=== PATIENT | male | born 1965 | race Caucasian/White ===

== ENCOUNTER 2017-09-18 13:21 | Inpatient (IN) | payer OTHER ==
[~2017-09-18] VITALS: Ht 180.3 cm; Wt 105.6 kg
[~2017-09-18 13:21] MED LIST: NOHOMEMEDS
[2017-09-18 13:35] LABS: BASOPHIL (%) 0.5 % (0-1); BASOPHIL COUNT 0.1 K/uL (0-0.1); EOSINOPHIL (%) 0.1 % (0-5); HEMATOCRIT 51.7 % (38.0-50.0); HEMOGLOBIN 16.2 G/DL (12.5-16.6); IMMATURE GRANULOCYTE (%) 2.4 % (0.0-0.7); LYMPHOCYTE (%) 12.6 % (15-42); LYMPHOCYTE COUNT 1.7 K/uL (1.0-2.8); MCH 32.6 PG (29.0-34.0); MCHC 31.3 G/DL (30.0-36.0); MONOCYTE (%) 6.4 % (3-12); MONOCYTE COUNT 0.9 K/uL (0-0.8); NEUTROPHIL COUNT 10.8 K/uL (1.8-6.4); PLATELET COUNT 297 K/uL (156-360); RBC DIS.WIDTH-CV 13.2 % (11.8-14.6); RBC DIS.WIDTH-SD 51.3 % (39-53); RED BLOOD COUNT 4.97 M/uL (4.00-5.50); WHITE BLOOD COUNT 13.8 K/uL (4.1-10.2)
[2017-09-18 13:41] LABS: INTER. NORMALIZED RATIO 1.1
[2017-09-18 13:43] LABS: PTT 27.9 SEC (25-37)
[2017-09-18 13:50] LABS: CARBOXY HGB 0 % (0-5); METHEMOGLOBIN 1.5 % (0-1.5); PCO2 < 18 mm Hg (35-45); PO2 > 583 mm Hg (80-100)
[2017-09-18 13:58] LABS: COMMENTS - BLOOD GASES A+C+; DEVICE 840 PB; FI02 100 %; MODE SPONT; PEEP 5 CM/H20; PRES. SUPPORT 10 CM/H2O; SITE RR; TOTAL RESP RATE 20 resp/min; pH < 6.92 (7.35-7.45)
[2017-09-18 13:59] LABS: TROP-I INTERPRETATION NEGATIVE; TROPONIN-I < 0.01 ng/mL (0.0-0.30)
[2017-09-18 14:13] LABS: ALBUMIN 5.4 g/dL (3.2-4.8); CHLORIDE 116 mEq/L (99-109); POTASSIUM 5.5 mEq/L (3.7-5.4); SODIUM 147 mEq/L (136-147)
[2017-09-18 14:14] LABS: AMYLASE 51 IU/L (1-118)
[2017-09-18 14:16] LABS: APPEARANCE SL.HAZY ((CLEAR)); BILIRUBIN NEGATIVE; BLOOD MODERATE; COLOR STRAW ((YELLOW)); GLUCOSE 238 mg/dL (70-99); GLUCOSE (STRIP) 50; KETONES NEGATIVE; LEUKOCYTES NEGATIVE; NITRITE NEGATIVE; PROTEIN (STRIP) 100; SPECIFIC GRAVITY 1.012 (1.000-1.030); TOTAL PROTEIN 9.6 g/dL (6.4-8.3); UROBILINOGEN 0.2 MG/DL (0.2-1.0)
[2017-09-18 14:18] LABS: TOTAL BILIRUBIN 0.1 mg/dL (0.0-1.0)
[2017-09-18 14:19] LABS: ALKALINE PHOSPHATASE 64 IU/L (3-129); SERUM ETHYL ALCOHOL < 10 mg/dL
[2017-09-18 14:20] LABS: CREATININE 1.5 mg/dL (0.6-1.3); GFR ESTIMATE (CALCULATED) 52 mL/min/ (58.99-99999)
[2017-09-18 14:21] LABS: AST (GOT) 20 IU/L (2-34); UREA NITROGEN (BUN) 10 mg/dL (9-23)
[2017-09-18 14:22] LABS: ALT (GPT) 28 IU/L (3-49)
[2017-09-18 14:23] LABS: CREATINE KINASE 122 IU/L (1-294); LIPASE 12 U/L (1.0-51.0)
[2017-09-18 14:27] LABS: AMPHETAMINE NEGATIVE (500 ng/mL); BARBITURATES NEGATIVE (200 ng/mL); BENZODIAZEPINES NEGATIVE (150 ng/mL); BUPRENORPHINE NEGATIVE (10 ng/mL); COCAINE NEGATIVE (150 ng/mL); METHADONE NEGATIVE (200 ng/mL); METHAMPHETAMINE NEGATIVE (500 ng/mL); OPIATES (MORPHINE) NEGATIVE (100 ng/mL); OXYCODONE NEGATIVE (100 ng/mL); PHENCYCLIDINE NEGATIVE (25 ng/mL); PROPOXYPHENE NEGATIVE (300 ng/mL); THC CANNABINOIDS NEGATIVE (50 ng/mL); TRICYCLIC ANTIDEPRESSANTS NEGATIVE (300 ng/mL)
[2017-09-18 14:36] LABS: BACTERIA RARE /HPF; CALCIUM PHOSPHATE CRYSTALS 2+; EPITHELIAL CELLS RARE /HPF; HYALINE CASTS 0-5 /LPF; MUCUS NONE SEEN /LPF; UCUL ADDED? NO; WHITE BLOOD CELLS 0-5 /HPF (0-5)
[2017-09-18 17:03] LABS: CARBOXY HGB 0.1 % (0-5); COMMENTS - BLOOD GASES A+C+; DEVICE 840 PB; FI02 40 %; METHEMOGLOBIN 1.9 % (0-1.5); MODE SPONT; PCO2 < 18 mm Hg (35-45); PEEP 5 CM/H20; PO2 309 mm Hg (80-100); PRES. SUPPORT 10 CM/H2O; SITE RR; TOTAL RESP RATE 13 resp/min; pH < 6.92 (7.35-7.45)
[2017-09-18 17:04] LABS: TIDAL VOLUME 2400 ML
[2017-09-18 18:11] LABS: ALBUMIN 4.7 g/dL (3.2-4.8); CHLORIDE 118 mEq/L (99-109)
[2017-09-18 18:12] LABS: POTASSIUM 7.2 mEq/L (3.7-5.4); SODIUM 151 mEq/L (136-147)
[2017-09-18 18:14] LABS: GLUCOSE 183 mg/dL (70-99); TOTAL PROTEIN 8.3 g/dL (6.4-8.3)
[2017-09-18 18:17] LABS: ALKALINE PHOSPHATASE 55 IU/L (3-129); CREATININE 1.7 mg/dL (0.6-1.3); GFR ESTIMATE (CALCULATED) 45 mL/min/ (58.99-99999)
[2017-09-18 18:18] LABS: SALICYLATE < 5.0 MG/DL (15-30)
[2017-09-18 18:19] LABS: ACETAMINOPHEN (TYLENOL) < 10 mcg/mL (10-30); AST (GOT) 21 IU/L (2-34); UREA NITROGEN (BUN) 14 mg/dL (9-23)
[2017-09-18 18:20] LABS: ALT (GPT) 26 IU/L (3-49)
[2017-09-18 18:30] LABS: TOTAL BILIRUBIN 0.2 mg/dL (0.0-1.0)
[2017-09-18 18:43] VITALS: BP 168/100
[2017-09-18 19:00] VITALS: BP 180/98
[2017-09-18 20:00] VITALS: BP 173/103
[2017-09-18 20:27] LABS: CARBOXY HGB 0.8 % (0-5); METHEMOGLOBIN 2.4 % (0-1.5); PCO2 < 19 mm Hg (35-45)
[2017-09-18 20:28] LABS: COMMENTS - BLOOD GASES A+C+; DEVICE VENT; FI02 40 %; MODE SPONT; PEEP 5 CM/H20; PO2 238 mm Hg (80-100); PRES. SUPPORT 10 CM/H2O; SITE RR; TIDAL VOLUME 1860 ML; TOTAL RESP RATE 17 resp/min; pH 7.12 (7.35-7.45)
[2017-09-18 21:00] VITALS: BP 92/75
[2017-09-18 21:30] VITALS: BP 80/55
[2017-09-18 22:23] LABS: ALBUMIN 4.3 g/dL (3.2-4.8); SODIUM 145 mEq/L (136-147)
[2017-09-18 22:26] LABS: GLUCOSE 167 mg/dL (70-99); TOTAL PROTEIN 7.6 g/dL (6.4-8.3)
[2017-09-18 22:29] LABS: ALKALINE PHOSPHATASE 49 IU/L (3-129)
[2017-09-18 22:30] LABS: UREA NITROGEN (BUN) 10 mg/dL (9-23)
[2017-09-18 22:31] LABS: AST (GOT) 28 IU/L (2-34)
[2017-09-18 22:32] LABS: ALT (GPT) 24 IU/L (3-49)
[2017-09-18 22:36] LABS: CHLORIDE 102 mEq/L (99-109); CREATININE 1.2 mg/dL (0.6-1.3); GFR ESTIMATE (CALCULATED) > 59 mL/min/ (58.99-99999); TOTAL BILIRUBIN 0.4 mg/dL (0.0-1.0)
[2017-09-18 22:53] LABS: CARBOXY HGB 1.3 % (0-5); METHEMOGLOBIN 1.9 % (0-1.5); PCO2 < 19 mm Hg (35-45)
[2017-09-18 22:54] LABS: COMMENTS - BLOOD GASES C+; DEVICE VENT; FI02 40 %; MODE SPONT; PO2 199 mm Hg (80-100); SITE R RAD ALINE; TOTAL RESP RATE 27 resp/min; pH 7.45 (7.35-7.45)
[2017-09-18 22:55] LABS: PEEP 5 CM/H20; PRES. SUPPORT 10 CM/H2O; TIDAL VOLUME 1500 ML
[2017-09-19] VITALS: BP 104/73
[2017-09-19 01:27] LABS: Methyl Alcohol (Methanol) None Detected (())
[2017-09-19 02:22] LABS: BASE EXCESS 7.1 mEq/L (-3 to +3); BICARBONATE 31.3 mEq/L (22-26); CARBOXY HGB 1.4 % (0-5); PCO2 42 mm Hg (35-45); pH 7.48 (7.35-7.45)
[2017-09-19 02:23] LABS: COMMENTS - BLOOD GASES C+; DEVICE VENT; FI02 40 %; MODE SPONT; PEEP 5 CM/H20; PO2 160 mm Hg (80-100); PRES. SUPPORT 10 CM/H2O; SITE R RAD ALINE; TOTAL RESP RATE 10 resp/min
[2017-09-19 04:00] VITALS: BP 103/67
[2017-09-19 04:17] LABS: BASE EXCESS 6.2 mEq/L (-3 to +3); BICARBONATE 31.2 mEq/L (22-26); CARBOXY HGB 1.1 % (0-5); METHEMOGLOBIN 2.2 % (0-1.5); PCO2 46 mm Hg (35-45); PO2 148 mm Hg (80-100); pH 7.44 (7.35-7.45)
[2017-09-19 04:18] LABS: COMMENTS - BLOOD GASES C+; DEVICE VENT; FI02 40 %; MECHANICAL RATE 12 resp/min; MODE AC; SITE R RAD ALINE; TOTAL RESP RATE 12 resp/min
[2017-09-19 04:19] LABS: PEEP 5 CM/H20; TIDAL VOLUME 500 ML
[2017-09-19 05:25] LABS: ALBUMIN 3.4 G/DL (3.2-4.8); ALKALINE PHOSPHATASE 33 IU/L (3-129); ALT (GPT) 17 IU/L (3-49); AST (GOT) 28 IU/L (2-34); CHLORIDE 97 MEQ/L (99-109); CREATININE 1.4 MG/DL (0.6-1.3); GFR ESTIMATE (CALCULATED) 56 mL/min/ (58.99-99999); GLUCOSE 148 mg/dL (70-99); SODIUM 145 MEQ/L (136-147); TOTAL BILIRUBIN 0.5 MG/DL (0.0-1.0); TOTAL PROTEIN 5.7 G/DL (6.4-8.3); UREA NITROGEN (BUN) 6 mg/dL (9-23)
[2017-09-19 05:27] LABS: POTASSIUM 3.1 MEQ/L (3.7-5.4)
[2017-09-19 07:20] LABS: BASE EXCESS 10.5 mEq/L (-3 to +3); BICARBONATE 36.5 mEq/L (22-26); CARBOXY HGB 1.5 % (0-5); COMMENTS - BLOOD GASES C+; DEVICE VENT; FI02 40 %; METHEMOGLOBIN 2.1 % (0-1.5); MODE AC; PCO2 55 mm Hg (35-45); PO2 154 mm Hg (80-100); SITE ALINE; pH 7.43 (7.35-7.45)
[2017-09-19 07:21] LABS: MECHANICAL RATE 12 resp/min; PEEP 5 CM/H20; TIDAL VOLUME 500 ML; TOTAL RESP RATE 12 resp/min
[2017-09-19 08:00] VITALS: BP 95/61
[2017-09-19 10:32] LABS: BASE EXCESS 10.8 mEq/L (-3 to +3); BICARBONATE 36.7 mEq/L (22-26); CARBOXY HGB 1.4 % (0-5); METHEMOGLOBIN 1.8 % (0-1.5); PCO2 54 mm Hg (35-45); pH 7.44 (7.35-7.45)
[2017-09-19 10:33] LABS: COMMENTS - BLOOD GASES C+; DEVICE VENT; FI02 30 %; MECHANICAL RATE 12 resp/min; MODE AC; PEEP 5 CM/H20; PO2 107 mm Hg (80-100); SITE ALINE; TIDAL VOLUME 500 ML; TOTAL RESP RATE 20 resp/min
[2017-09-19 10:58] LABS: HEPATITIS B SURFACE ANTIBODY Nonreactive; HEPATITIS B SURFACE ANTIGEN Nonreactive
[2017-09-19 12:00] VITALS: BP 149/92
[2017-09-19 20:26] LABS: BASE EXCESS 6.4 mEq/L (-3 to +3); BICARBONATE 28.7 mEq/L (22-26); CARBOXY HGB 1.3 % (0-5); COMMENTS - BLOOD GASES C+; DEVICE VENT; FI02 30 %; MECHANICAL RATE 20 resp/min; METHEMOGLOBIN 1.7 % (0-1.5); MODE A/C; PCO2 32 mm Hg (35-45); PEEP 5 CM/H20; PO2 73 mm Hg (80-100); SITE A LINE; TIDAL VOLUME 500 ML; TOTAL RESP RATE 20 resp/min; pH 7.56 (7.35-7.45)
[2017-09-19 20:37] LABS: ALBUMIN 3.1 G/DL (3.2-4.8); ALKALINE PHOSPHATASE 30 IU/L (3-129); ALT (GPT) 19 IU/L (3-49); CHLORIDE 104 MEQ/L (99-109); CREATININE 1.5 MG/DL (0.6-1.3); GFR ESTIMATE (CALCULATED) 52 mL/min/ (58.99-99999); POTASSIUM 3.5 MEQ/L (3.7-5.4); SODIUM 141 MEQ/L (136-147); TOTAL BILIRUBIN 0.6 MG/DL (0.0-1.0); TOTAL PROTEIN 5.2 G/DL (6.4-8.3); UREA NITROGEN (BUN) 4 mg/dL (9-23)
[2017-09-19 20:39] LABS: AST (GOT) 44 IU/L (2-34); GLUCOSE 89 mg/dL (70-99)
[2017-09-19 22:43] LABS: BASE EXCESS 7.4 mEq/L (-3 to +3); BICARBONATE 31.2 mEq/L (22-26); CARBOXY HGB 1.6 % (0-5); METHEMOGLOBIN 1.6 % (0-1.5); PO2 86 mm Hg (80-100)
[2017-09-19 22:44] LABS: COMMENTS - BLOOD GASES C+; DEVICE VENT; FI02 30 %; MECHANICAL RATE 15 resp/min; MODE A/C; PCO2 40 mm Hg (35-45); PEEP 5 CM/H20; SITE A LINE; TIDAL VOLUME 500 ML; TOTAL RESP RATE 15 resp/min
[2017-09-20 05:08] LABS: BASOPHIL (%) 0.4 % (0-1); EOSINOPHIL COUNT 0.1 K/uL (0-0.3); HEMATOCRIT 29.3 % (38.0-50.0); IMMATURE GRANULOCYTE (%) 0.5 % (0.0-0.7); LYMPHOCYTE (%) 9.1 % (15-42); LYMPHOCYTE COUNT 0.7 K/uL (1.0-2.8); MCH 32.6 PG (29.0-34.0); MCHC 34.1 G/DL (30.0-36.0); MONOCYTE (%) 12.6 % (3-12); NEUTROPHIL (%) 76.4 % (45-76); NEUTROPHIL COUNT 6.1 K/uL (1.8-6.4); RBC DIS.WIDTH-SD 45.6 % (39-53)
[2017-09-20 05:11] LABS: BASE EXCESS 3.2 mEq/L (-3 to +3); BICARBONATE 27.9 mEq/L (22-26); CARBOXY HGB 1.5 % (0-5); COMMENTS - BLOOD GASES C+; DEVICE VENT; FI02 30 %; MECHANICAL RATE 13 resp/min; METHEMOGLOBIN 1.4 % (0-1.5); MODE A/C; PCO2 42 mm Hg (35-45); PEEP 5 CM/H20; PO2 97 mm Hg (80-100); SITE ALINE; TIDAL VOLUME 500 ML; pH 7.43 (7.35-7.45)
[2017-09-20 05:15] LABS: RED BLOOD COUNT 3.07 M/uL (4.00-5.50)
[2017-09-20 05:16] LABS: MCV 95.4 FL (86-99)
[2017-09-20 06:10] LABS: ALBUMIN 2.9 G/DL (3.2-4.8); ALKALINE PHOSPHATASE 27 IU/L (3-129); ALT (GPT) 17 IU/L (3-49); AST (GOT) 40 IU/L (2-34); CHLORIDE 104 MEQ/L (99-109); GLUCOSE 96 mg/dL (70-99); MAGNESIUM 1.7 mg/dl (1.3-2.7); PHOSPHORUS 2.1 mg/dL (2.5-4.9); POTASSIUM 3.2 MEQ/L (3.7-5.4); SODIUM 140 MEQ/L (136-147); TOTAL BILIRUBIN 0.6 MG/DL (0.0-1.0); VANCOMYCIN, TROUGH 17.8 MCG/ML (10-20)
[2017-09-20 08:19] LABS: CREATININE 2.9 MG/DL (0.6-1.3); GFR ESTIMATE (CALCULATED) 24 mL/min/ (58.99-99999); UREA NITROGEN (BUN) 8 mg/dL (9-23)
[2017-09-20 11:28] LABS: HEPATITIS B SURFACE ANTIGEN Nonreactive
[2017-09-20 11:29] LABS: HEPATITIS C ANTIBODY Nonreactive
[2017-09-20 11:31] LABS: ANTI-HEPATITIS A VIRUS (IGM) Nonreactive; ANTI-HEPATITIS B CORE (IGM) Nonreactive
[2017-09-20 11:33] LABS: HIV-1/2 AB/AG COMBO Nonreactive
[2017-09-20 13:52] LABS: PLATELET COUNT 111 K/uL (156-360)
[2017-09-20 22:00] VITALS: BP 126/83
[2017-09-21] VITALS (12 sets, daily range): BP systolic 93–181; BP diastolic 66–103
[2017-09-21 06:13] LABS: BASOPHIL (%) 0.6 % (0-1); EOSINOPHIL COUNT 0.2 K/uL (0-0.3); HEMATOCRIT 29.8 % (38.0-50.0); HEMOGLOBIN 10.1 G/DL (12.5-16.6); IMMATURE GRANULOCYTE (%) 0.3 % (0.0-0.7); LYMPHOCYTE (%) 12.3 % (15-42); LYMPHOCYTE COUNT 0.8 K/uL (1.0-2.8); MCH 32.7 PG (29.0-34.0); MCHC 33.9 G/DL (30.0-36.0); MCV 96.4 FL (86-99); MONOCYTE (%) 12.9 % (3-12); MONOCYTE COUNT 0.9 K/uL (0-0.8); NEUTROPHIL (%) 70.9 % (45-76); NEUTROPHIL COUNT 4.8 K/uL (1.8-6.4); PLATELET COUNT 131 K/uL (156-360); RBC DIS.WIDTH-CV 13.2 % (11.8-14.6); RBC DIS.WIDTH-SD 46.4 % (39-53); RED BLOOD COUNT 3.09 M/uL (4.00-5.50); WHITE BLOOD COUNT 6.8 K/uL (4.1-10.2)
[2017-09-21 07:02] LABS: ALBUMIN 3.4 G/DL (3.2-4.8); ALKALINE PHOSPHATASE 29 IU/L (3-129); ALT (GPT) 18 IU/L (3-49); AST (GOT) 41 IU/L (2-34); CHLORIDE 100 MEQ/L (99-109); CREATININE 3.9 MG/DL (0.6-1.3); GFR ESTIMATE (CALCULATED) 17 mL/min/ (58.99-99999); GLUCOSE 94 mg/dL (70-99); SODIUM 138 MEQ/L (136-147); TOTAL BILIRUBIN 0.7 MG/DL (0.0-1.0); UREA NITROGEN (BUN) 12 mg/dL (9-23); URIC ACID 1.6 mg/dL (3.1-9.2); VANCOMYCIN, TROUGH 16.4 MCG/ML (10-20)
[2017-09-21 07:03] LABS: PHOSPHORUS 3.3 mg/dL (2.5-4.9); TOTAL PROTEIN 5.8 G/DL (6.4-8.3)
[2017-09-21 17:17] LABS: THYROTROPIN (TSH) 2.6 MIU/L (0.4-5.5)
[2017-09-21 18:15] LABS: TRIGLYCERIDES 208 MG/DL (Normal: <150)
[2017-09-21 18:35] LABS: HIGH-SENS C-REACTIVE PROTEIN > 8.00 MG/DL (0.02-0.20)
[2017-09-22] VITALS (25 sets, daily range): BP systolic 103–173; BP diastolic 66–118
[2017-09-22 04:41] LABS: BASOPHIL (%) 0.5 % (0-1); EOSINOPHIL (%) 4.6 % (0-5); EOSINOPHIL COUNT 0.3 K/uL (0-0.3); HEMATOCRIT 29.1 % (38.0-50.0); IMMATURE GRANULOCYTE (%) 0.3 % (0.0-0.7); LYMPHOCYTE COUNT 0.7 K/uL (1.0-2.8); MCH 32.8 PG (29.0-34.0); MCHC 34.4 G/DL (30.0-36.0); MCV 95.4 FL (86-99); MONOCYTE (%) 14.9 % (3-12); NEUTROPHIL (%) 69.7 % (45-76); NEUTROPHIL COUNT 4.6 K/uL (1.8-6.4); PLATELET COUNT 116 K/uL (156-360); RBC DIS.WIDTH-CV 12.8 % (11.8-14.6); RED BLOOD COUNT 3.05 M/uL (4.00-5.50); WHITE BLOOD COUNT 6.5 K/uL (4.1-10.2)
[2017-09-22 05:04] LABS: CHLORIDE 103 mEq/L (99-109); POTASSIUM 3.9 mEq/L (3.7-5.4); SODIUM 139 mEq/L (136-147)
[2017-09-22 05:05] LABS: MAGNESIUM 2.1 mg/dL (1.3-2.7)
[2017-09-22 05:06] LABS: GLUCOSE 89 mg/dL (70-99)
[2017-09-22 05:10] LABS: GFR ESTIMATE (CALCULATED) 9 mL/min/ (58.99-99999); PHOSPHORUS 4.4 mg/dL (2.5-4.9)
[2017-09-22 05:25] LABS: CREATININE 6.6 mg/dL (0.6-1.3); UREA NITROGEN (BUN) 26 mg/dL (9-23)
[2017-09-22 10:05] LABS: TREPONEMA ANTIBODY NEGATIVE (NEGATIVE)
[2017-09-23] VITALS (21 sets, daily range): BP systolic 119–188; BP diastolic 81–108
[2017-09-23 08:52] LABS: BASOPHIL (%) 0.5 % (0-1); EOSINOPHIL (%) 4.6 % (0-5); EOSINOPHIL COUNT 0.3 K/uL (0-0.3); HEMATOCRIT 30.3 % (38.0-50.0); HEMOGLOBIN 10.6 G/DL (12.5-16.6); IMMATURE GRANULOCYTE (%) 0.3 % (0.0-0.7); LYMPHOCYTE (%) 10.2 % (15-42); LYMPHOCYTE COUNT 0.6 K/uL (1.0-2.8); MCH 32.7 PG (29.0-34.0); MCV 93.5 FL (86-99); MONOCYTE COUNT 1.2 K/uL (0-0.8); NEUTROPHIL (%) 64.4 % (45-76); NEUTROPHIL COUNT 3.9 K/uL (1.8-6.4); RBC DIS.WIDTH-CV 12.2 % (11.8-14.6); RBC DIS.WIDTH-SD 42.3 % (39-53); RED BLOOD COUNT 3.24 M/uL (4.00-5.50); WHITE BLOOD COUNT 6.1 K/uL (4.1-10.2)
[2017-09-23 09:18] LABS: PLATELET COUNT 155 K/uL (156-360)
[2017-09-23 09:29] LABS: ALBUMIN 3.4 G/DL (3.2-4.8); ALKALINE PHOSPHATASE 38 IU/L (3-129); ALT (GPT) 14 IU/L (3-49); CHLORIDE 99 MEQ/L (99-109); CREATININE 6.2 MG/DL (0.6-1.3); GFR ESTIMATE (CALCULATED) 10 mL/min/ (58.99-99999); GLUCOSE 132 mg/dL (70-99); POTASSIUM 3.9 MEQ/L (3.7-5.4); SODIUM 139 MEQ/L (136-147); TOTAL PROTEIN 5.8 G/DL (6.4-8.3); UREA NITROGEN (BUN) 29 mg/dL (9-23)
[2017-09-23 10:01] LABS: AST (GOT) 20 IU/L (2-34); MAGNESIUM 2.2 mg/dl (1.3-2.7); PHOSPHORUS 5.5 mg/dL (2.5-4.9); TOTAL BILIRUBIN 0.4 MG/DL (0.0-1.0)
[2017-09-24] VITALS (25 sets, daily range): BP systolic 121–179; BP diastolic 82–117
[2017-09-24 05:34] LABS: BASOPHIL (%) 0.8 % (0-1); BASOPHIL COUNT 0.1 K/uL (0-0.1); EOSINOPHIL (%) 5.6 % (0-5); EOSINOPHIL COUNT 0.4 K/uL (0-0.3); HEMATOCRIT 30.5 % (38.0-50.0); HEMOGLOBIN 10.4 G/DL (12.5-16.6); IMMATURE GRANULOCYTE (%) 0.6 % (0.0-0.7); LYMPHOCYTE (%) 8.7 % (15-42); LYMPHOCYTE COUNT 0.6 K/uL (1.0-2.8); MCH 31.7 PG (29.0-34.0); MCHC 34.1 G/DL (30.0-36.0); MONOCYTE (%) 20.7 % (3-12); MONOCYTE COUNT 1.4 K/uL (0-0.8); NEUTROPHIL (%) 63.6 % (45-76); NEUTROPHIL COUNT 4.2 K/uL (1.8-6.4); PLATELET COUNT 192 K/uL (156-360); RBC DIS.WIDTH-CV 12.3 % (11.8-14.6); RBC DIS.WIDTH-SD 42.4 % (39-53); RED BLOOD COUNT 3.28 M/uL (4.00-5.50); WHITE BLOOD COUNT 6.6 K/uL (4.1-10.2)
[2017-09-24 06:04] LABS: CHLORIDE 99 MEQ/L (99-109); GLUCOSE 111 mg/dL (70-99); PHOSPHORUS 7.3 mg/dL (2.5-4.9); SODIUM 137 MEQ/L (136-147)
[2017-09-24 06:05] LABS: CREATININE 7.8 MG/DL (0.6-1.3); GFR ESTIMATE (CALCULATED) 8 mL/min/ (58.99-99999); MAGNESIUM 2.6 mg/dl (1.3-2.7); UREA NITROGEN (BUN) 48 mg/dL (9-23)
[2017-09-25] VITALS (23 sets, daily range): BP systolic 114–150; BP diastolic 75–96
[2017-09-25 05:07] LABS: BASOPHIL (%) 0.4 % (0-1); EOSINOPHIL (%) 4.8 % (0-5); EOSINOPHIL COUNT 0.3 K/uL (0-0.3); HEMATOCRIT 29.9 % (38.0-50.0); HEMOGLOBIN 10.5 G/DL (12.5-16.6); IMMATURE GRANULOCYTE (%) 0.9 % (0.0-0.7); LYMPHOCYTE (%) 11.5 % (15-42); LYMPHOCYTE COUNT 0.8 K/uL (1.0-2.8); MCH 32.3 PG (29.0-34.0); MCHC 35.1 G/DL (30.0-36.0); MONOCYTE (%) 20.6 % (3-12); MONOCYTE COUNT 1.4 K/uL (0-0.8); NEUTROPHIL (%) 61.8 % (45-76); NEUTROPHIL COUNT 4.3 K/uL (1.8-6.4); PLATELET COUNT 207 K/uL (156-360); RBC DIS.WIDTH-CV 12.4 % (11.8-14.6); RBC DIS.WIDTH-SD 41.7 % (39-53); RED BLOOD COUNT 3.25 M/uL (4.00-5.50); WHITE BLOOD COUNT 6.9 K/uL (4.1-10.2)
[2017-09-25 05:47] LABS: CHLORIDE 95 MEQ/L (99-109); CREATININE 5.8 MG/DL (0.6-1.3); GFR ESTIMATE (CALCULATED) 11 mL/min/ (58.99-99999); GLUCOSE 112 mg/dL (70-99); MAGNESIUM 2.4 mg/dl (1.3-2.7); PHOSPHORUS 5.6 mg/dL (2.5-4.9); POTASSIUM 3.6 MEQ/L (3.7-5.4); SODIUM 134 MEQ/L (136-147); UREA NITROGEN (BUN) 35 mg/dL (9-23)
[2017-09-25 05:47] LABS: BASE EXCESS 4.4 mEq/L (-3 to +3); BICARBONATE 28.4 mEq/L (22-26); CARBOXY HGB 1.8 % (0-5); COMMENTS - BLOOD GASES A+C+; DEVICE VENT; FI02 40 %; METHEMOGLOBIN 1.8 % (0-1.5); PCO2 39 mm Hg (35-45); PO2 81 mm Hg (80-100); SITE RR; pH 7.47 (7.35-7.45)
[2017-09-25 05:48] LABS: CONTINUOUS POS AIRWAY PRESSURE 5 cm H2O; MODE SPONT; PRES. SUPPORT 10 CM/H2O; TOTAL RESP RATE 16 resp/min
[2017-09-26] VITALS (32 sets, daily range): BP systolic 116–206; BP diastolic 75–115
[2017-09-26 05:01] LABS: BASOPHIL COUNT 0.1 K/uL (0-0.1); EOSINOPHIL (%) 6.9 % (0-5); EOSINOPHIL COUNT 0.5 K/uL (0-0.3); HEMATOCRIT 28.5 % (38.0-50.0); IMMATURE GRANULOCYTE (%) 0.9 % (0.0-0.7); LYMPHOCYTE (%) 10.5 % (15-42); LYMPHOCYTE COUNT 0.7 K/uL (1.0-2.8); MCH 32.4 PG (29.0-34.0); MCHC 35.1 G/DL (30.0-36.0); MCV 92.2 FL (86-99); MONOCYTE (%) 20.7 % (3-12); MONOCYTE COUNT 1.4 K/uL (0-0.8); NEUTROPHIL COUNT 4.2 K/uL (1.8-6.4); PLATELET COUNT 234 K/uL (156-360); RBC DIS.WIDTH-CV 12.4 % (11.8-14.6); RBC DIS.WIDTH-SD 41.5 % (39-53); RED BLOOD COUNT 3.09 M/uL (4.00-5.50)
[2017-09-26 06:25] LABS: CHLORIDE 97 MEQ/L (99-109); CREATININE 7.9 MG/DL (0.6-1.3); GFR ESTIMATE (CALCULATED) 8 mL/min/ (58.99-99999); GLUCOSE 106 mg/dL (70-99); MAGNESIUM 2.6 mg/dl (1.3-2.7); PHOSPHORUS 7.4 mg/dL (2.5-4.9); POTASSIUM 3.7 MEQ/L (3.7-5.4); SODIUM 137 MEQ/L (136-147); UREA NITROGEN (BUN) 52 mg/dL (9-23)
[2017-09-27] VITALS (24 sets, daily range): BP systolic 132–188; BP diastolic 84–109
[2017-09-27 06:01] LABS: BASOPHIL (%) 0.5 % (0-1); EOSINOPHIL (%) 2.8 % (0-5); EOSINOPHIL COUNT 0.2 K/uL (0-0.3); HEMATOCRIT 29.2 % (38.0-50.0); HEMOGLOBIN 10.4 G/DL (12.5-16.6); IMMATURE GRANULOCYTE (%) 1.2 % (0.0-0.7); LYMPHOCYTE (%) 8.3 % (15-42); LYMPHOCYTE COUNT 0.6 K/uL (1.0-2.8); MCH 32.6 PG (29.0-34.0); MCHC 35.6 G/DL (30.0-36.0); MCV 91.5 FL (86-99); MONOCYTE (%) 16.9 % (3-12); MONOCYTE COUNT 1.3 K/uL (0-0.8); NEUTROPHIL (%) 70.3 % (45-76); NEUTROPHIL COUNT 5.3 K/uL (1.8-6.4); PLATELET COUNT 268 K/uL (156-360); RBC DIS.WIDTH-SD 40.2 % (39-53); RED BLOOD COUNT 3.19 M/uL (4.00-5.50); WHITE BLOOD COUNT 7.6 K/uL (4.1-10.2)
[2017-09-27 06:12] LABS: CHLORIDE 97 MEQ/L (99-109); GFR ESTIMATE (CALCULATED) 6 mL/min/ (58.99-99999); GLUCOSE 101 mg/dL (70-99); MAGNESIUM 2.6 mg/dl (1.3-2.7); PHOSPHORUS 8.8 mg/dL (2.5-4.9); POTASSIUM 4.1 MEQ/L (3.7-5.4); SODIUM 136 MEQ/L (136-147); UREA NITROGEN (BUN) 63 mg/dL (9-23)
[2017-09-27 06:14] LABS: CREATININE 9.3 MG/DL (0.6-1.3)
[2017-09-28] VITALS (23 sets, daily range): BP systolic 127–173; BP diastolic 81–107
[2017-09-28 05:33] LABS: BASOPHIL (%) 0.7 % (0-1); BASOPHIL COUNT 0.1 K/uL (0-0.1); EOSINOPHIL (%) 0.8 % (0-5); EOSINOPHIL COUNT 0.1 K/uL (0-0.3); HEMATOCRIT 28.6 % (38.0-50.0); HEMOGLOBIN 10.3 G/DL (12.5-16.6); IMMATURE GRANULOCYTE (%) 1.2 % (0.0-0.7); LYMPHOCYTE (%) 7.6 % (15-42); LYMPHOCYTE COUNT 0.7 K/uL (1.0-2.8); MCH 32.7 PG (29.0-34.0); MCV 90.8 FL (86-99); MONOCYTE (%) 16.3 % (3-12); MONOCYTE COUNT 1.4 K/uL (0-0.8); NEUTROPHIL (%) 73.4 % (45-76); NEUTROPHIL COUNT 6.5 K/uL (1.8-6.4); PLATELET COUNT 301 K/uL (156-360); RBC DIS.WIDTH-CV 12.3 % (11.8-14.6); RBC DIS.WIDTH-SD 40.7 % (39-53); RED BLOOD COUNT 3.15 M/uL (4.00-5.50); WHITE BLOOD COUNT 8.8 K/uL (4.1-10.2)
[2017-09-28 06:17] LABS: ALBUMIN 3.5 G/DL (3.2-4.8); ALKALINE PHOSPHATASE 43 IU/L (3-129); ALT (GPT) 15 IU/L (3-49); AST (GOT) 23 IU/L (2-34); CHLORIDE 98 MEQ/L (99-109); GLUCOSE 100 mg/dL (70-99); POTASSIUM 3.9 MEQ/L (3.7-5.4); SODIUM 134 MEQ/L (136-147); TOTAL PROTEIN 6.1 G/DL (6.4-8.3); UREA NITROGEN (BUN) 38 mg/dL (9-23)
[2017-09-28 06:25] LABS: CREATININE 7.2 MG/DL (0.6-1.3); GFR ESTIMATE (CALCULATED) 8 mL/min/ (58.99-99999); MAGNESIUM 2.2 mg/dl (1.3-2.7); PHOSPHORUS 5.1 mg/dL (2.5-4.9); TOTAL BILIRUBIN 0.6 MG/DL (0.0-1.0)
[2017-09-28 16:42] LABS: APPEARANCE SL.HAZY ((CLEAR)); BILIRUBIN NEGATIVE; BLOOD NEGATIVE; COLOR YELLOW ((YELLOW)); GLUCOSE (STRIP) NEGATIVE; KETONES NEGATIVE; LEUKOCYTES NEGATIVE; NITRITE NEGATIVE; PROTEIN (STRIP) >=500; UROBILINOGEN 0.2 MG/DL (0.2-1.0)
[2017-09-28 17:09] LABS: BACTERIA 3+ /HPF; EPITHELIAL CELLS 2+ /HPF; MUCUS NONE SEEN /LPF; RED BLOOD CELLS 0-5 /HPF (0-5); UCUL ADDED? YES; UR CREATININE CONCENTRATION 61.2 MG/DL; WHITE BLOOD CELLS 0-5 /HPF (0-5)
[2017-09-29] VITALS (25 sets, daily range): BP systolic 118–216; BP diastolic 82–139
[2017-09-29 05:52] LABS: BASOPHIL (%) 0.8 % (0-1); BASOPHIL COUNT 0.1 K/uL (0-0.1); EOSINOPHIL (%) 4.2 % (0-5); EOSINOPHIL COUNT 0.4 K/uL (0-0.3); HEMATOCRIT 28.1 % (38.0-50.0); IMMATURE GRANULOCYTE (%) 1.1 % (0.0-0.7); LYMPHOCYTE (%) 8.3 % (15-42); LYMPHOCYTE COUNT 0.8 K/uL (1.0-2.8); MCH 32.5 PG (29.0-34.0); MCHC 35.6 G/DL (30.0-36.0); MCV 91.2 FL (86-99); MONOCYTE (%) 12.2 % (3-12); MONOCYTE COUNT 1.2 K/uL (0-0.8); NEUTROPHIL (%) 73.4 % (45-76); NEUTROPHIL COUNT 7.4 K/uL (1.8-6.4); PLATELET COUNT 312 K/uL (156-360); RBC DIS.WIDTH-CV 12.3 % (11.8-14.6); RBC DIS.WIDTH-SD 40.8 % (39-53); RED BLOOD COUNT 3.08 M/uL (4.00-5.50); WHITE BLOOD COUNT 10.1 K/uL (4.1-10.2)
[2017-09-29 06:19] LABS: CHLORIDE 98 MEQ/L (99-109); GFR ESTIMATE (CALCULATED) 6 mL/min/ (58.99-99999); GLUCOSE 139 mg/dL (70-99); MAGNESIUM 2.5 mg/dl (1.3-2.7); PHOSPHORUS 6.7 mg/dL (2.5-4.9); POTASSIUM 3.5 MEQ/L (3.7-5.4); SODIUM 136 MEQ/L (136-147); UREA NITROGEN (BUN) 57 mg/dL (9-23)
[2017-09-29 06:28] LABS: CREATININE 9.3 MG/DL (0.6-1.3)
[2017-09-30] VITALS (23 sets, daily range): BP systolic 127–180; BP diastolic 84–114
[2017-09-30 05:21] LABS: BASOPHIL (%) 0.7 % (0-1); BASOPHIL COUNT 0.1 K/uL (0-0.1); EOSINOPHIL (%) 2.8 % (0-5); EOSINOPHIL COUNT 0.3 K/uL (0-0.3); HEMATOCRIT 26.5 % (38.0-50.0); HEMOGLOBIN 9.3 G/DL (12.5-16.6); IMMATURE GRANULOCYTE (%) 0.6 % (0.0-0.7); LYMPHOCYTE (%) 8.6 % (15-42); LYMPHOCYTE COUNT 0.9 K/uL (1.0-2.8); MCH 32.1 PG (29.0-34.0); MCHC 35.1 G/DL (30.0-36.0); MCV 91.4 FL (86-99); MONOCYTE (%) 11.9 % (3-12); MONOCYTE COUNT 1.3 K/uL (0-0.8); NEUTROPHIL (%) 75.4 % (45-76); NEUTROPHIL COUNT 8.2 K/uL (1.8-6.4); PLATELET COUNT 315 K/uL (156-360); RBC DIS.WIDTH-CV 12.3 % (11.8-14.6); RBC DIS.WIDTH-SD 41.3 % (39-53); WHITE BLOOD COUNT 10.9 K/uL (4.1-10.2)
[2017-09-30 05:46] LABS: CHLORIDE 99 MEQ/L (99-109); CREATININE 7.6 MG/DL (0.6-1.3); GFR ESTIMATE (CALCULATED) 8 mL/min/ (58.99-99999); GLUCOSE 123 mg/dL (70-99); MAGNESIUM 2.5 mg/dl (1.3-2.7); PHOSPHORUS 4.9 mg/dL (2.5-4.9); POTASSIUM 3.8 MEQ/L (3.7-5.4); SODIUM 138 MEQ/L (136-147); UREA NITROGEN (BUN) 41 mg/dL (9-23)
[2017-10-01] VITALS (23 sets, daily range): BP systolic 126–176; BP diastolic 89–110
[2017-10-01 05:26] LABS: BASOPHIL (%) 0.8 % (0-1); BASOPHIL COUNT 0.1 K/uL (0-0.1); EOSINOPHIL (%) 2.7 % (0-5); EOSINOPHIL COUNT 0.3 K/uL (0-0.3); HEMATOCRIT 28.1 % (38.0-50.0); HEMOGLOBIN 9.7 G/DL (12.5-16.6); IMMATURE GRANULOCYTE (%) 0.9 % (0.0-0.7); MCHC 34.5 G/DL (30.0-36.0); MCV 92.7 FL (86-99); MONOCYTE (%) 12.5 % (3-12); MONOCYTE COUNT 1.4 K/uL (0-0.8); NEUTROPHIL (%) 74.1 % (45-76); NEUTROPHIL COUNT 8.5 K/uL (1.8-6.4); PLATELET COUNT 334 K/uL (156-360); RBC DIS.WIDTH-CV 12.3 % (11.8-14.6); RBC DIS.WIDTH-SD 41.6 % (39-53); RED BLOOD COUNT 3.03 M/uL (4.00-5.50); WHITE BLOOD COUNT 11.4 K/uL (4.1-10.2)
[2017-10-01 05:55] LABS: CHLORIDE 97 MEQ/L (99-109); CREATININE 9.7 MG/DL (0.6-1.3); GFR ESTIMATE (CALCULATED) 6 mL/min/ (58.99-99999); GLUCOSE 114 mg/dL (70-99); MAGNESIUM 2.7 mg/dl (1.3-2.7); PHOSPHORUS 5.7 mg/dL (2.5-4.9); POTASSIUM 4.2 MEQ/L (3.7-5.4); SODIUM 136 MEQ/L (136-147); UREA NITROGEN (BUN) 59 mg/dL (9-23)
[2017-10-02] VITALS (24 sets, daily range): BP systolic 0–177; BP diastolic 0–106
[2017-10-02 05:43] LABS: BASOPHIL (%) 0.8 % (0-1); BASOPHIL COUNT 0.1 K/uL (0-0.1); EOSINOPHIL (%) 1.8 % (0-5); EOSINOPHIL COUNT 0.2 K/uL (0-0.3); HEMATOCRIT 28.1 % (38.0-50.0); HEMOGLOBIN 9.7 G/DL (12.5-16.6); IMMATURE GRANULOCYTE (%) 0.7 % (0.0-0.7); LYMPHOCYTE (%) 7.3 % (15-42); LYMPHOCYTE COUNT 0.9 K/uL (1.0-2.8); MCH 31.8 PG (29.0-34.0); MCHC 34.5 G/DL (30.0-36.0); MCV 92.1 FL (86-99); MONOCYTE (%) 11.6 % (3-12); MONOCYTE COUNT 1.5 K/uL (0-0.8); NEUTROPHIL (%) 77.8 % (45-76); NEUTROPHIL COUNT 9.8 K/uL (1.8-6.4); PLATELET COUNT 386 K/uL (156-360); RBC DIS.WIDTH-CV 12.1 % (11.8-14.6); RBC DIS.WIDTH-SD 40.8 % (39-53); RED BLOOD COUNT 3.05 M/uL (4.00-5.50); WHITE BLOOD COUNT 12.6 K/uL (4.1-10.2)
[2017-10-02 06:05] LABS: CHLORIDE 97 MEQ/L (99-109); CREATININE 7.6 MG/DL (0.6-1.3); GFR ESTIMATE (CALCULATED) 8 mL/min/ (58.99-99999); GLUCOSE 123 mg/dL (70-99); MAGNESIUM 2.5 mg/dl (1.3-2.7); PHOSPHORUS 3.5 mg/dL (2.5-4.9); SODIUM 135 MEQ/L (136-147); UREA NITROGEN (BUN) 47 mg/dL (9-23)
[2017-10-03 04:20] VITALS: BP 148/72
[2017-10-03 05:57] LABS: BASOPHIL COUNT 0.1 K/uL (0-0.1); EOSINOPHIL (%) 1.5 % (0-5); EOSINOPHIL COUNT 0.2 K/uL (0-0.3); HEMATOCRIT 26.8 % (38.0-50.0); HEMOGLOBIN 9.2 G/DL (12.5-16.6); IMMATURE GRANULOCYTE (%) 0.7 % (0.0-0.7); LYMPHOCYTE (%) 7.3 % (15-42); MCH 31.5 PG (29.0-34.0); MCHC 34.3 G/DL (30.0-36.0); MCV 91.8 FL (86-99); MONOCYTE (%) 10.4 % (3-12); MONOCYTE COUNT 1.4 K/uL (0-0.8); NEUTROPHIL (%) 79.1 % (45-76); NEUTROPHIL COUNT 10.2 K/uL (1.8-6.4); PLATELET COUNT 420 K/uL (156-360); RBC DIS.WIDTH-SD 40.9 % (39-53); RED BLOOD COUNT 2.92 M/uL (4.00-5.50)
[2017-10-03 06:09] LABS: CHLORIDE 98 MEQ/L (99-109); MAGNESIUM 2.8 mg/dl (1.3-2.7); POTASSIUM 3.8 MEQ/L (3.7-5.4); SODIUM 139 MEQ/L (136-147)
[2017-10-03 06:20] LABS: GFR ESTIMATE (CALCULATED) 6 mL/min/ (58.99-99999); GLUCOSE 126 mg/dL (70-99); PHOSPHORUS 4.3 mg/dL (2.5-4.9); UREA NITROGEN (BUN) 69 mg/dL (9-23)
[2017-10-03 06:24] LABS: CREATININE 10.1 MG/DL (0.6-1.3)
[2017-10-03 08:14] VITALS: BP 198/94
[2017-10-03 11:30] VITALS: BP 142/72
[2017-10-03 16:07] VITALS: BP 169/73
[2017-10-03 18:32] VITALS: BP 146/79
[2017-10-03 20:39] VITALS: BP 158/85
[2017-10-04 00:28] VITALS: BP 152/97
[2017-10-04 03:14] VITALS: BP 166/97
[2017-10-04 06:09] LABS: BASOPHIL (%) 1.1 % (0-1); BASOPHIL COUNT 0.1 K/uL (0-0.1); EOSINOPHIL (%) 3.3 % (0-5); EOSINOPHIL COUNT 0.4 K/uL (0-0.3); HEMATOCRIT 25.7 % (38.0-50.0); IMMATURE GRANULOCYTE (%) 0.7 % (0.0-0.7); LYMPHOCYTE (%) 8.6 % (15-42); LYMPHOCYTE COUNT 1.1 K/uL (1.0-2.8); MCH 32.5 PG (29.0-34.0); MCV 92.8 FL (86-99); MONOCYTE (%) 10.9 % (3-12); MONOCYTE COUNT 1.3 K/uL (0-0.8); NEUTROPHIL (%) 75.4 % (45-76); NEUTROPHIL COUNT 9.3 K/uL (1.8-6.4); PLATELET COUNT 420 K/uL (156-360); RBC DIS.WIDTH-SD 40.9 % (39-53); RED BLOOD COUNT 2.77 M/uL (4.00-5.50); WHITE BLOOD COUNT 12.3 K/uL (4.1-10.2)
[2017-10-04 06:37] LABS: CHLORIDE 96 MEQ/L (99-109); GFR ESTIMATE (CALCULATED) 5 mL/min/ (58.99-99999); GLUCOSE 118 mg/dL (70-99); POTASSIUM 3.5 MEQ/L (3.7-5.4); SODIUM 139 MEQ/L (136-147); UREA NITROGEN (BUN) 89 mg/dL (9-23)
[2017-10-04 16:08] VITALS: BP 135/91
[2017-10-04 18:49] VITALS: BP 157/98
[2017-10-04 19:25] VITALS: BP 161/100
[2017-10-04 19:32] LABS: HEMATOCRIT 29.3 % (38.0-50.0); MCH 31.5 PG (29.0-34.0); MCHC 34.1 G/DL (30.0-36.0); MCV 92.4 FL (86-99); PLATELET COUNT 465 K/uL (156-360); RBC DIS.WIDTH-CV 12.2 % (11.8-14.6); RBC DIS.WIDTH-SD 41.1 % (39-53); RED BLOOD COUNT 3.17 M/uL (4.00-5.50); WHITE BLOOD COUNT 14.5 K/uL (4.1-10.2)
[2017-10-04 19:58] LABS: INTER. NORMALIZED RATIO 1.1
[2017-10-04 20:01] LABS: PTT 22.5 SEC (25-37)
[2017-10-04 20:30] VITALS: BP 148/100
[2017-10-05 00:56] VITALS: BP 130/86
[2017-10-05 03:40] VITALS: BP 125/78
[2017-10-05 05:46] LABS: BASOPHIL (%) 1.3 % (0-1); BASOPHIL COUNT 0.2 K/uL (0-0.1); EOSINOPHIL (%) 3.9 % (0-5); EOSINOPHIL COUNT 0.5 K/uL (0-0.3); HEMATOCRIT 27.9 % (38.0-50.0); HEMOGLOBIN 9.6 G/DL (12.5-16.6); LYMPHOCYTE (%) 10.1 % (15-42); LYMPHOCYTE COUNT 1.3 K/uL (1.0-2.8); MCH 32.1 PG (29.0-34.0); MCHC 34.4 G/DL (30.0-36.0); MCV 93.3 FL (86-99); MONOCYTE (%) 11.6 % (3-12); MONOCYTE COUNT 1.5 K/uL (0-0.8); NEUTROPHIL (%) 72.1 % (45-76); NEUTROPHIL COUNT 9.1 K/uL (1.8-6.4); PLATELET COUNT 400 K/uL (156-360); RBC DIS.WIDTH-CV 12.1 % (11.8-14.6); RBC DIS.WIDTH-SD 41.3 % (39-53); RED BLOOD COUNT 2.99 M/uL (4.00-5.50); WHITE BLOOD COUNT 12.6 K/uL (4.1-10.2)
[2017-10-05 06:06] LABS: CHLORIDE 96 MEQ/L (99-109); CREATININE 8.7 MG/DL (0.6-1.3); GFR ESTIMATE (CALCULATED) 7 mL/min/ (58.99-99999); GLUCOSE 108 mg/dL (70-99); POTASSIUM 4.9 MEQ/L (3.7-5.4); SODIUM 136 MEQ/L (136-147); UREA NITROGEN (BUN) 59 mg/dL (9-23)
[2017-10-05 08:15] VITALS: BP 151/95
[2017-10-05 10:45] VITALS: BP 132/85
[2017-10-05 14:45] VITALS: BP 145/86
[2017-10-05 20:43] VITALS: BP 136/73
[2017-10-06 00:22] VITALS: BP 154/93
[2017-10-06 04:23] VITALS: BP 174/80
[2017-10-06 05:59] LABS: BASOPHIL (%) 1.1 % (0-1); BASOPHIL COUNT 0.1 K/uL (0-0.1); EOSINOPHIL (%) 5.1 % (0-5); EOSINOPHIL COUNT 0.7 K/uL (0-0.3); HEMATOCRIT 27.3 % (38.0-50.0); HEMOGLOBIN 9.3 G/DL (12.5-16.6); LYMPHOCYTE (%) 9.6 % (15-42); LYMPHOCYTE COUNT 1.3 K/uL (1.0-2.8); MCH 31.6 PG (29.0-34.0); MCHC 34.1 G/DL (30.0-36.0); MCV 92.9 FL (86-99); MONOCYTE (%) 11.5 % (3-12); MONOCYTE COUNT 1.5 K/uL (0-0.8); NEUTROPHIL (%) 71.7 % (45-76); NEUTROPHIL COUNT 9.5 K/uL (1.8-6.4); PLATELET COUNT 439 K/uL (156-360); RBC DIS.WIDTH-CV 12.1 % (11.8-14.6); RBC DIS.WIDTH-SD 41.1 % (39-53); RED BLOOD COUNT 2.94 M/uL (4.00-5.50); WHITE BLOOD COUNT 13.2 K/uL (4.1-10.2)
[2017-10-06 06:22] LABS: CHLORIDE 94 MEQ/L (99-109); GFR ESTIMATE (CALCULATED) 5 mL/min/ (58.99-99999); GLUCOSE 97 mg/dL (70-99); SODIUM 135 MEQ/L (136-147); UREA NITROGEN (BUN) 81 mg/dL (9-23)
[2017-10-06 06:23] LABS: CREATININE 10.8 MG/DL (0.6-1.3)
[2017-10-06 15:35] VITALS: BP 132/85
[2017-10-06 20:05] VITALS: BP 119/74
[2017-10-07] VITALS (7 sets, daily range): BP systolic 125–139; BP diastolic 83–97
[2017-10-07 05:14] LABS: BASOPHIL (%) 1.5 % (0-1); BASOPHIL COUNT 0.2 K/uL (0-0.1); EOSINOPHIL (%) 5.6 % (0-5); EOSINOPHIL COUNT 0.6 K/uL (0-0.3); HEMATOCRIT 27.4 % (38.0-50.0); HEMOGLOBIN 9.3 G/DL (12.5-16.6); IMMATURE GRANULOCYTE (%) 0.7 % (0.0-0.7); LYMPHOCYTE (%) 13.1 % (15-42); LYMPHOCYTE COUNT 1.3 K/uL (1.0-2.8); MCH 31.8 PG (29.0-34.0); MCHC 33.9 G/DL (30.0-36.0); MCV 93.8 FL (86-99); MONOCYTE COUNT 1.2 K/uL (0-0.8); NEUTROPHIL (%) 67.1 % (45-76); NEUTROPHIL COUNT 6.7 K/uL (1.8-6.4); PLATELET COUNT 424 K/uL (156-360); RBC DIS.WIDTH-SD 41.3 % (39-53); RED BLOOD COUNT 2.92 M/uL (4.00-5.50); WHITE BLOOD COUNT 9.9 K/uL (4.1-10.2)
[2017-10-07 05:46] LABS: CHLORIDE 94 MEQ/L (99-109); CREATININE 7.5 MG/DL (0.6-1.3); GFR ESTIMATE (CALCULATED) 8 mL/min/ (58.99-99999); GLUCOSE 104 mg/dL (70-99); SODIUM 133 MEQ/L (136-147); UREA NITROGEN (BUN) 53 mg/dL (9-23)
[2017-10-08 03:24] VITALS: BP 130/81
[2017-10-08 07:54] LABS: BASOPHIL COUNT 0.1 K/uL (0-0.1); EOSINOPHIL (%) 5.4 % (0-5); EOSINOPHIL COUNT 0.6 K/uL (0-0.3); HEMATOCRIT 25.2 % (38.0-50.0); HEMOGLOBIN 8.8 G/DL (12.5-16.6); IMMATURE GRANULOCYTE (%) 0.9 % (0.0-0.7); LYMPHOCYTE (%) 7.8 % (15-42); LYMPHOCYTE COUNT 0.8 K/uL (1.0-2.8); MCH 32.2 PG (29.0-34.0); MCHC 34.9 G/DL (30.0-36.0); MCV 92.3 FL (86-99); MONOCYTE (%) 9.9 % (3-12); NEUTROPHIL COUNT 7.6 K/uL (1.8-6.4); PLATELET COUNT 418 K/uL (156-360); RBC DIS.WIDTH-CV 11.9 % (11.8-14.6); RBC DIS.WIDTH-SD 40.2 % (39-53); RED BLOOD COUNT 2.73 M/uL (4.00-5.50); WHITE BLOOD COUNT 10.2 K/uL (4.1-10.2)
[2017-10-08 08:12] LABS: ALBUMIN 3.7 G/DL (3.2-4.8); CHLORIDE 90 MEQ/L (99-109); GLUCOSE 145 mg/dL (70-99); POTASSIUM 3.7 MEQ/L (3.7-5.4); SODIUM 128 MEQ/L (136-147); UREA NITROGEN (BUN) 68 mg/dL (9-23)
[2017-10-08 08:15] LABS: GFR ESTIMATE (CALCULATED) 7 mL/min/ (58.99-99999)
[2017-10-08 12:12] VITALS: BP 134/86
[2017-10-08 15:47] VITALS: BP 115/73
[2017-10-08 23:16] VITALS: BP 124/79
[2017-10-09 06:11] LABS: BASOPHIL (%) 1.9 % (0-1); BASOPHIL COUNT 0.2 K/uL (0-0.1); EOSINOPHIL (%) 7.4 % (0-5); EOSINOPHIL COUNT 0.7 K/uL (0-0.3); HEMOGLOBIN 9.4 G/DL (12.5-16.6); IMMATURE GRANULOCYTE (%) 0.8 % (0.0-0.7); LYMPHOCYTE (%) 14.3 % (15-42); LYMPHOCYTE COUNT 1.4 K/uL (1.0-2.8); MCH 31.6 PG (29.0-34.0); MCHC 33.6 G/DL (30.0-36.0); MCV 94.3 FL (86-99); MONOCYTE (%) 10.5 % (3-12); NEUTROPHIL (%) 65.1 % (45-76); NEUTROPHIL COUNT 6.3 K/uL (1.8-6.4); PLATELET COUNT 461 K/uL (156-360); RBC DIS.WIDTH-CV 11.9 % (11.8-14.6); RED BLOOD COUNT 2.97 M/uL (4.00-5.50); WHITE BLOOD COUNT 9.6 K/uL (4.1-10.2)
[2017-10-09 06:33] LABS: CHLORIDE 93 MEQ/L (99-109); GFR ESTIMATE (CALCULATED) 9 mL/min/ (58.99-99999); POTASSIUM 4.3 MEQ/L (3.7-5.4); SODIUM 132 MEQ/L (136-147); UREA NITROGEN (BUN) 40 mg/dL (9-23)
[2017-10-09 06:36] LABS: CREATININE 7.1 MG/DL (0.6-1.3); GLUCOSE 95 mg/dL (70-99)
[2017-10-09 08:27] VITALS: BP 128/76
[2017-10-09 15:53] VITALS: BP 152/88
[2017-10-09] MEDS ORDERED: AMLODIPINE BESY10 MG PO (15:54)
[2017-10-09] MEDS ORDERED: ESCITALOPRAM OX10 MG PO (15:54)
[2017-10-09] MEDS ORDERED: LOPRESSOR25 MG PO (15:54)
[2017-10-09] MEDS ORDERED: QUETIAPINE FUMA50 MG PO (15:54)
[2017-10-09] MEDS ORDERED: RENVELA800 MG PO (15:54)
[2017-10-09] MEDS ORDERED: PANTOPRAZOLE SO40 MG PO (15:54)
== END 2017-10-09 20:01 | disposition home or self-care (01) | DRG 4 ==
LOC: EME 13:21 → EDBD 13:21 → 4WEST 18:07 → EDOF 18:07 → ENRESERV 18:09 → 4WEST 18:34 → ENRESERV 10-02 20:30 → 3EAST 10-02 23:25
PROVIDERS: Emergency Medicine; Hospitalist; Internal Medicine; Internal Medicine Critical Care Medicine; Internal Medicine Nephrology; Student in an Organized Health Care Education/Training Program; Surgery
PROC: 0BH17EZ Insertion of Endotracheal Airway into Trachea, Via Natural or Artificial Opening (ICD-10-PCS; principal; 2017-09-18)
PROC: 5A1955Z Respiratory Ventilation, Greater than 96 Consecutive Hours (ICD-10-PCS; principal; 2017-09-18)
PROC: 03HY32Z Insertion of Monitoring Device into Upper Artery, Percutaneous Approach (ICD-10-PCS; 2017-09-18)
PROC: 5A1D70Z Performance of Urinary Filtration, Intermittent, Less than 6 Hours Per Day (ICD-10-PCS; 2017-09-18)
PROC: 02HV33Z Insertion of Infusion Device into Superior Vena Cava, Percutaneous Approach (ICD-10-PCS; 2017-09-18)
PROC: 02HV33Z Insertion of Infusion Device into Superior Vena Cava, Percutaneous Approach (ICD-10-PCS; 2017-09-19)
PROC: 3E0G76Z Introduction of Nutritional Substance into Upper GI, Via Natural or Artificial Opening (ICD-10-PCS; 2017-09-20)
PROC: 0B110F4 Bypass Trachea to Cutaneous with Tracheostomy Device, Open Approach (ICD-10-PCS; 2017-09-26)
PROC: 0DH63UZ Insertion of Feeding Device into Stomach, Percutaneous Approach (ICD-10-PCS; 2017-09-26)
PROC: 02PY33Z Removal of Infusion Device from Great Vessel, Percutaneous Approach (ICD-10-PCS; 2017-09-28)
PROC: 02HV33Z Insertion of Infusion Device into Superior Vena Cava, Percutaneous Approach (ICD-10-PCS; 2017-09-28)
PROC: 0BP1XFZ Removal of Tracheostomy Device from Trachea, External Approach (ICD-10-PCS; 2017-10-04)
DX: T51.8X2A Toxic effect of other alcohols, intentional self-harm, initial encounter (principal); N17.0 Acute kidney failure with tubular necrosis; N14.4 Toxic nephropathy, not elsewhere classified; G92 Toxic encephalopathy; E87.2 Acidosis; J95.01 Hemorrhage from tracheostomy stoma; J69.0 Pneumonitis due to inhalation of food and vomit; S06.5X5A Traumatic subdural hemorrhage with loss of consciousness greater than 24 hours with return to pre-existing conscious level, initial encounter; W19.XXXA Unspecified fall, initial encounter; R40.2432 Glasgow coma scale score 3-8, at arrival to emergency department; F32.2 Major depressive disorder, single episode, severe without psychotic features; J96.00 Acute respiratory failure, unspecified whether with hypoxia or hypercapnia; E87.0 Hyperosmolality and hypernatremia; E87.5 Hyperkalemia; E87.6 Hypokalemia; E87.1 Hypo-osmolality and hyponatremia; E83.39 Other disorders of phosphorus metabolism; J44.1 Chronic obstructive pulmonary disease with (acute) exacerbation; R34 Anuria and oliguria; I10 Essential (primary) hypertension; D64.89 Other specified anemias; E66.9 Obesity, unspecified; Z68.30 Body mass index [BMI] 30.0-30.9, adult; F10.20 Alcohol dependence, uncomplicated; K42.9 Umbilical hernia without obstruction or gangrene; G43.909 Migraine, unspecified, not intractable, without status migrainosus; F17.210 Nicotine dependence, cigarettes, uncomplicated; Z56.0 Unemployment, unspecified
CPT/HCPCS: 36600; 70450; 70551; 71045; 71250; 74176; 80048; 80048 91; 80053; 80069; 80074; 80202; 81003; 82010; 82150; 82436; 82550; 82550 91; 82570; 82693 90; 82803; 83605; 83690; 83735; 83930; 83935; 84100; 84133; 84145 90; 84300; 84443; 84478; 84484; 84550; 84600 90; 85025; 85027; 85610; 85730; 86141; 86706; 86780; 86850; 86900; 86901; 87040; 87070; 87086; 87205; 87340; 87389; 87641; 90686; 92526 GN; 92610 GN; 93005; 93306; 94002; 94003; 94760; 94799; 97530 GO; 99281; 99285; C1750; C1751; C1788; C9113; G0480; J0330; J0690; J0692; J1451; J1644; J1815; J1953; J2250; J2270; J2405; J2543; J2704; J2997; J3010; J3370; J3411; J3415; J7030; J7040; J7050; J7070; P9047; S0020